=== PATIENT | female | born 1935 | race African-American/Black ===

== ENCOUNTER 2018-08-18 13:34 | Observation (INO) ==
[2018-08-18 14:42] LABS: Basophils # 0.1 10*3/uL (0.0-0.2); Basophils % 0.9 % (0.0-0.8); Eosinophils # 0.3 10*3/uL (0.0-0.87); Eosinophils % 2.2 % (0.00-10.9); Hematocrit 46.2 VOL% (35.7-47.0); Hemoglobin 14.4 GM/DL (12.0-16.0); Immature Granulocytes % 1.2 %; Immature Granulocytes Absolute 0.13 #; Lymphocytes # 1.1 10*3/uL (1.4-4.0); Lymphocytes % 9.7 % (21.3-54.2); Mean Corpuscular HGB Conc 31.2 GM/DL (32-36); Mean Corpuscular Hemoglobin 27 PG (27-34); Mean Corpuscular Volume 86.8 FL (87-102); Mean Platelet Volume 10.1 FL (9.6-12.0); Monocytes # 0.8 10*3/uL (0.11-0.8); Monocytes % 7.1 % (1.7-12.7); Neutrophils # 8.9 10*3/uL (1.4-7.4); Neutrophils % 78.9 % (38.7-73.9); Platelet Count 283 T/CUMM (130-400); Red Blood Count 5.32 MC/CUMM (3.8-5.5); Red Cell Distribution Width 15.1 % (9.3-17.3); White Blood Count 11.3 T/CUMM (4-12)
[2018-08-18 15:00] LABS: Albumin 3.1 G/DL (3.4-5.0); Bilirubin,Total 0.4 MG/DL (0.2-1.0); Calcium 8.8 MG/DL (8.5-10.1); Osmolality,Calculated 275.7 MOS/KG (273-304); Potassium 3.6 MMOL/L (3.5-5.1); Total Protein 8.5 G/DL (6.4-8.3)
[2018-08-18] MEDS ORDERED: FUROSEMIDE 40 MG/4 ML VIAL IV STA (15:14)
[2018-08-18 15:20] LABS: Barbiturates Screen,Urine Negative (Negative); Benzodiazepines Screen,Urine Negative (Negative); Cannabinoid Screen,Urine Negative (Negative); Opiate Screen,Urine Negative (Negative); Phencyclidine Screen,Urine Negative (Negative)
[2018-08-18 15:23] LABS: Apearance,Urine CLEAR (Clear); Bilirubin,Urine Negative (Negative); Blood, Urine Negative (Negative); Glucose,Urine (UA) Negative (Negative); Hyaline Casts,Urine 1 /LPF (0-3); Ketones,Urine Negative (Negative); Mucus,Urine Occasional /LPF (Occasional); Nitrite,Urine Negative (Negative); Protein,Urine Negative; RBC,Urine 2 /HPF (0-4); Squamous Epithelial Cell,Urine Occasional /HPF (0-10); Urine Color Yellow (Yellow); Urine Specific Gravity 1.011 (1.001-1.035); Urine Urobilinogen < 2.0 EU/DL (0.2-1.0); WBC,Urine 1 /HPF (0-6)
[2018-08-18] MEDS ORDERED: ONDANSETRON 4 MG/2 ML VIAL IV PRN (15:30)
[2018-08-18] MEDS ORDERED: ACETAMINOPHEN 325 MG TABLET PO PRN (15:30)
[2018-08-18] MEDS: ENOXAPARIN 40 MG/0.4 ML SYRINGE SUBCUT SCH (20:31)
[2018-08-19] MEDS ORDERED: FUROSEMIDE 20 MG/2 ML VIAL IV SCH (08:00)
[2018-08-19] MEDS: PANTOPRAZOLE 40 MG TABLET PO SCH (09:26)
[2018-08-19] MEDS ORDERED: ALBUTEROL 2.5 MG/3 ML NEB RESP TX PRN (13:30)
[2018-08-19] MEDS ORDERED: FUROSEMIDE 40 MG TABLET PO SCH (20:00)
[2018-08-19] MEDS ORDERED: PRAVASTATIN 20 MG TABLET PO SCH (21:00)
[2018-08-19] MEDS: MEMANTINE 10 MG TABLET PO SCH (21:16)
[2018-08-19] MEDS: SIMVASTATIN 10 MG TABLET PO SCH (21:16)
[2018-08-19] MEDS: CALCIUM (CARBONATE)/VITAMIN D 600 MG-400 UNIT TABLET PO SCH (21:16)
[2018-08-19] MEDS: ENOXAPARIN 40 MG/0.4 ML SYRINGE SUBCUT SCH (21:17)
[2018-08-20 05:15] LABS: Calcium 8.3 MG/DL (8.5-10.1); Osmolality,Calculated 287.8 MOS/KG (273-304); Potassium 3.7 MMOL/L (3.5-5.1)
[2018-08-20] MEDS: FUROSEMIDE 40 MG TABLET PO SCH (08:18)
[2018-08-20] MEDS: MULTIVITAMIN (CENTRUM) TABLET PO SCH (08:18)
[2018-08-20] MEDS: PANTOPRAZOLE 40 MG TABLET PO SCH (08:18)
[2018-08-20] MEDS: MEMANTINE 10 MG TABLET PO SCH ×2 (08:18→21:24)
[2018-08-20] MEDS: CHOLECALCIFEROL 5,000 UNIT TABLET PO SCH (08:18)
[2018-08-20] MEDS: CALCIUM (CARBONATE)/VITAMIN D 600 MG-400 UNIT TABLET PO SCH ×2 (08:18→21:24)
[2018-08-20] MEDS: CITALOPRAM 40 MG TABLET PO SCH (08:18)
[2018-08-20] MEDS ORDERED: RIVASTIGMINE 13.3 MG/24 HR PATCH TRANSDERM SCH (09:00)
[2018-08-20] MEDS: RIVASTIGMINE 4.6 MG/24 HR PATCH TRANSDERM SCH (09:53)
[2018-08-20] MEDS ORDERED: FUROSEMIDE 20 MG TABLET PO SCH (12:00)
[2018-08-20] MEDS: SIMVASTATIN 10 MG TABLET PO SCH (21:24)
[2018-08-20] MEDS: ENOXAPARIN 40 MG/0.4 ML SYRINGE SUBCUT SCH (21:24)
[2018-08-20] MEDS: OXcarbazepine 300 MG TABLET PO SCH (21:25)
[2018-08-21] MEDS: FUROSEMIDE 40 MG TABLET PO SCH (08:49)
[2018-08-21] MEDS: OXcarbazepine 300 MG TABLET PO SCH (08:49)
[2018-08-21] MEDS: PANTOPRAZOLE 40 MG TABLET PO SCH (08:49)
[2018-08-21] MEDS: CITALOPRAM 40 MG TABLET PO SCH (08:49)
[2018-08-21] MEDS: CALCIUM (CARBONATE)/VITAMIN D 600 MG-400 UNIT TABLET PO SCH (08:49)
[2018-08-21] MEDS: CHOLECALCIFEROL 5,000 UNIT TABLET PO SCH (08:49)
[2018-08-21] MEDS: RIVASTIGMINE 4.6 MG/24 HR PATCH TRANSDERM SCH (08:49)
[2018-08-21] MEDS: MEMANTINE 10 MG TABLET PO SCH (08:50)
[2018-08-21] MEDS: MULTIVITAMIN (CENTRUM) TABLET PO SCH (10:00)
[2018-08-21 11:53] VITALS: BP 121/59
== END 2018-08-21 11:50 ==
LOC: EDUNIT# → EDBD → N.ED 13:34 → N.EDINP 13:34 → SUATTDRO 15:30 → N.2W 16:06 → N.2E 17:46
PROVIDERS: ADMIT Internal Medicine; ATTEND Internal Medicine

== ENCOUNTER 2020-02-10 19:30 | Inpatient (IN) ==
[2020-02-10 20:50] LABS: Alanine Aminotransferase 43 U/L (13-56); Albumin 2.1 G/DL (3.4-5.0); Alkaline Phosphatase 91 U/L (45-117); Aspartate Amino Transferase 89 U/L (0-37); Bilirubin,Total < 0.39 MG/DL (0.2-1.0); Blood Urea Nitrogen 29 MG/DL (7-18); Calcium 10.1 MG/DL (8.5-10.1); Estimated Glom Filtration Rate 78 ML/MIN; Ferritin 1227.6 ng/ml (8-252); Glucose 132 MG/DL (74-106); Osmolality,Calculated 308.7 MOS/KG (273-304); Total Protein 8.2 G/DL (6.4-8.3)
[2020-02-10 20:51] LABS: INR 1.2; Partial Thromboplastin Time 26.4 SECS (23.9-33.8)
[2020-02-10] MEDS ORDERED: AZITHROMYCIN INJ 500 MG in SODIUM CHLORIDE 0.9% 250 ML IV STA (20:56)
[2020-02-10] MEDS ORDERED: ALBUTEROL/IPRATROPIUM 3 ML NEB RESP TX STA (20:56)
[2020-02-10] MEDS ORDERED: ONDANSETRON 4 MG/2 ML VIAL IV STA (20:56)
[2020-02-10] MEDS ORDERED: methylPREDNISolone SOD SUC 125 MG/2 ML VIAL IV STA (20:56)
[2020-02-10] MEDS ORDERED: PIPERACILLIN/TAZOBACTAM 3,375 MG in SODIUM CHLORIDE 0.9% 100 ML IV STA (20:56)
[2020-02-10 20:58] LABS: Basophils # 0.1 10*3/uL (0.0-0.2); Eosinophils # 0.2 10*3/uL (0.0-0.87); Hematocrit 54.9 VOL% (35.7-47.0); Hemoglobin 16.8 GM/DL (12.0-16.0); Immature Granulocytes % 4.1 %; Immature Granulocytes Absolute 0.39 #; Lymphocytes % 10.7 % (21.3-54.2); Mean Corpuscular HGB Conc 30.6 GM/DL (32-36); Mean Corpuscular Volume 89.7 FL (87-102); Mean Platelet Volume 11.7 FL (9.6-12.0); Monocytes % 6.2 % (1.7-12.7); NRBC # 0.04 10*3/uL; Platelet Count 303 T/CUMM (130-400); Red Blood Count 6.12 MC/CUMM (3.8-5.5); Red Cell Distribution Width 17.2 % (9.3-17.3); White Blood Count 9.4 T/CUMM (4-12)
[2020-02-10] MEDS ORDERED: POTASSIUM CHLORIDE 20 MEQ TABLET PO STA (20:58)
[2020-02-10 21:30] LABS: ABG Base Excess 0.3 MMOL/L (-2.5-2.5); ABG HCO3 24.6 MMOL/L (20-26); ABG Oxygen Saturation 96.6 % (95-100); ABG PCO2 39.4 MM HG (35-48); ABG PH 7.407 (7.35-7.45); ABG PO2 91.8 MM HG (80-95); ABG TCO2 21.2 MMOL/L (23-27); Allen Test Positive
[2020-02-10] MEDS ORDERED: FUROSEMIDE 40 MG/4 ML VIAL IV ONE (21:47)
[2020-02-10] MEDS ORDERED: POTASSIUM CHLORIDE RIDER 10 MEQ in PREMIX 1 EACH IV SCH (22:00)
[2020-02-10] MEDS ORDERED: FUROSEMIDE 100 MG/10 ML VIAL ONE (22:31)
[2020-02-10 22:53] LABS: Apearance,Urine CLEAR (Clear); Bilirubin,Urine Negative (Negative); Blood, Urine Negative (Negative); Glucose,Urine (UA) Negative (Negative); Hyaline Casts,Urine 38 /LPF (0-3); Ketones,Urine Negative (Negative); Mucus,Urine Few /LPF (Occasional); Nitrite,Urine Negative (Negative); Protein,Urine 30 MG/DL; RBC,Urine 1 /HPF (0-4); Squamous Epithelial Cell,Urine Occasional /HPF (0-10); Urine Color Yellow (Yellow); Urine Specific Gravity 1.018 (1.001-1.035); Urine Urobilinogen < 2.0 EU/DL (0.2-1.0); WBC,Urine 3 /HPF (0-6)
[2020-02-10] MEDS ORDERED: SODIUM CHLORIDE 0.9% IV ONE (23:30)
[2020-02-10] MEDS ORDERED: POTASSIUM CHLORIDE IV ONE (23:30)
[2020-02-10] MEDS ORDERED: SODIUM CHLORIDE 0.9% 1,000 ML IV SCH (23:38)
[2020-02-10] MEDS ORDERED: PROMETHAZINE 25 MG/1 ML VIAL IM PRN (23:38)
[2020-02-10] MEDS ORDERED: ONDANSETRON 4 MG/2 ML VIAL IV PRN (23:38)
[2020-02-11] MEDS: ENOXAPARIN 60 MG/0.6 ML SYRINGE SUBCUT SCH ×3 (01:00→20:20)
[2020-02-11 04:55] LABS: ABG Base Excess 0.7 MMOL/L (-2.5-2.5); ABG Oxygen Saturation 91.9 % (95-100); ABG PCO2 41.1 MM HG (35-48); ABG PH 7.402 (7.35-7.45); ABG PO2 66.5 MM HG (80-95); ABG TCO2 22.8 MMOL/L (23-27); Allen Test Positive; Pt O2 Delivery Device Other
[2020-02-11 06:03] LABS: Calcium 9.9 MG/DL (8.5-10.1); Osmolality,Calculated 316.4 MOS/KG (273-304)
[2020-02-11 06:06] LABS: Basophils # 0.1 10*3/uL (0.0-0.2); Basophils % 0.8 % (0.0-0.8); Hematocrit 45.9 VOL% (35.7-47.0); Immature Granulocytes % 4.2 %; Immature Granulocytes Absolute 0.38 #; Lymphocytes # 0.8 10*3/uL (1.4-4.0); Lymphocytes % 8.3 % (21.3-54.2); Mean Corpuscular HGB Conc 30.5 GM/DL (32-36); Mean Corpuscular Volume 89.8 FL (87-102); Mean Platelet Volume 11.8 FL (9.6-12.0); Monocytes % 3.6 % (1.7-12.7); NRBC # 0.05 10*3/uL; Neutrophils % 83.1 % (38.7-73.9); Platelet Count 299 T/CUMM (130-400); Red Blood Count 5.11 MC/CUMM (3.8-5.5); White Blood Count 9.1 T/CUMM (4-12)
[2020-02-11 06:17] LABS: INR 1.3; PT Patient Result 13.9 SECS (9.8-11.9)
[2020-02-11 06:35] LABS: Anisocytosis Slight; Band Neutrophils 3 % (0-10); Lymphocytes 8 % (20-55); Nucleated Red Blood Cells 2 (0-5); Platelet Estimate Normal; Segmented Neutrophils 86 % (50-85); Total Cells Counted 100
[2020-02-11 06:36] LABS: Smudge Cells Few
[2020-02-11] MEDS ORDERED: MAGNESIUM SULF RIDER 2 GM in PREMIX 1 EACH IV ONE (08:02)
[2020-02-11] MEDS ORDERED: POTASSIUM CHLORIDE 20 MEQ TABLET PO ONE (08:02)
[2020-02-11] MEDS ORDERED: ZINC SULFATE 220 MG CAPSULE PO SCH (09:00)
[2020-02-11] MEDS ORDERED: PANTOPRAZOLE 40 MG VIAL IV SCH (09:00)
[2020-02-11] MEDS ORDERED: HYDROXYCHLOROQUINE 200 MG TABLET PO SCH (09:00)
[2020-02-11] MEDS ORDERED: ALBUTEROL INHALER 18 GM INH PRN (13:21)
[2020-02-11] MEDS ORDERED: SODIUM CHLORIDE 0.9% 1,000 ML IV ONE (13:43)
[2020-02-11] MEDS: SODIUM CHLORIDE 0.45% 1,000 ML IV SCH (18:03)
[2020-02-11] MEDS ORDERED: VANCOMYCIN INJ 1,000 MG in SODIUM CHLORIDE 0.9% 250 ML IV ONE (20:00)
[2020-02-11] MEDS: MEMANTINE 10 MG TABLET PO SCH (20:20)
[2020-02-11] MEDS: SERTRALINE 100 MG TABLET PO SCH (20:20)
[2020-02-11] MEDS: SIMVASTATIN 10 MG TABLET PO SCH (20:20)
[2020-02-11] MEDS: ACETAMINOPHEN 500 MG TABLET PO SCH (20:20)
[2020-02-11] MEDS: OXcarbazepine 300 MG TABLET PO SCH (20:20)
[2020-02-11] MEDS: CALCIUM (CARBONATE)/VITAMIN D 600 MG-400 UNIT TABLET PO SCH (20:40)
[2020-02-12] MEDS: SODIUM CHLORIDE 0.45% 1,000 ML IV SCH ×2 (07:23→10:32)
[2020-02-12] MEDS ORDERED: HYDROXYCHLOROQUINE 200 MG TABLET PO SCH (09:00)
[2020-02-12] MEDS ORDERED: RIVASTIGMINE 4.6 MG/24 HR PATCH TRANSDERM SCH (09:00)
[2020-02-12] MEDS: ENOXAPARIN 60 MG/0.6 ML SYRINGE SUBCUT SCH ×3 (09:55→21:20)
[2020-02-12] MEDS: CALCIUM (CARBONATE)/VITAMIN D 600 MG-400 UNIT TABLET PO SCH ×2 (10:13→22:46)
[2020-02-12] MEDS: OXcarbazepine 300 MG TABLET PO SCH ×2 (10:15→22:47)
[2020-02-12] MEDS: MEMANTINE 10 MG TABLET PO SCH ×2 (10:15→22:46)
[2020-02-12] MEDS: allopurinoL 100 MG TABLET PO SCH (10:16)
[2020-02-12] MEDS: ACETAMINOPHEN 500 MG TABLET PO SCH ×2 (10:16→22:47)
[2020-02-12] MEDS: CHOLECALCIFEROL 5,000 UNIT TABLET PO SCH (10:16)
[2020-02-12 15:16] LABS: Calcium 9.7 MG/DL (8.5-10.1); Osmolality,Calculated 317.9 MOS/KG (273-304)
[2020-02-12] MEDS: POTASSIUM CHLORIDE RIDER 10 MEQ in PREMIX 1 EACH IV SCH ×5 (17:55→23:05)
[2020-02-12] MEDS: SERTRALINE 100 MG TABLET PO SCH (22:47)
[2020-02-12] MEDS: SIMVASTATIN 10 MG TABLET PO SCH (22:47)
[2020-02-13] MEDS: POTASSIUM CHLORIDE RIDER 10 MEQ in PREMIX 1 EACH IV SCH (01:05)
[2020-02-13 06:51] LABS: Basophils # 0.1 10*3/uL (0.0-0.2); Basophils % 0.8 % (0.0-0.8); Eosinophils # 0.2 10*3/uL (0.0-0.87); Eosinophils % 2.8 % (0.00-10.9); Hematocrit 30.6 VOL% (35.7-47.0); Immature Granulocytes % 6.6 %; Lymphocytes # 0.7 10*3/uL (1.4-4.0); Lymphocytes % 8.6 % (21.3-54.2); Mean Corpuscular HGB Conc 29.4 GM/DL (32-36); Mean Corpuscular Volume 92.4 FL (87-102); Mean Platelet Volume 12.5 FL (9.6-12.0); Monocytes % 5.5 % (1.7-12.7); NRBC # 0.06 10*3/uL; Neutrophils % 75.7 % (38.7-73.9); Red Cell Distribution Width 16.5 % (9.3-17.3); White Blood Count 7.6 T/CUMM (4-12)
[2020-02-13 06:53] LABS: Red Blood Count 3.31 MC/CUMM (3.8-5.5)
[2020-02-13 06:54] LABS: Platelet Count 109 T/CUMM (130-400)
[2020-02-13 07:29] LABS: Calcium 9.5 MG/DL (8.5-10.1); Ferritin 945.8 ng/ml (8-252); Osmolality,Calculated 309.3 MOS/KG (273-304)
[2020-02-13] MEDS: SODIUM CHLORIDE 0.45% 1,000 ML IV SCH ×3 (08:17→18:45)
[2020-02-13 08:29] LABS: Band Neutrophils 2 % (0-10); Eosinophils 4 % (0-10); Lymphocytes 10 % (20-55); Myelocytes 1 %; Nucleated Red Blood Cells 3 (0-5); Segmented Neutrophils 77 % (50-85); Total Cells Counted 100
[2020-02-13] MEDS: OXcarbazepine 300 MG TABLET PO SCH ×2 (08:40→23:27)
[2020-02-13] MEDS: ENOXAPARIN 60 MG/0.6 ML SYRINGE SUBCUT SCH (08:40)
[2020-02-13] MEDS: allopurinoL 100 MG TABLET PO SCH (08:40)
[2020-02-13] MEDS: CALCIUM (CARBONATE)/VITAMIN D 600 MG-400 UNIT TABLET PO SCH ×2 (08:40→23:27)
[2020-02-13] MEDS: ACETAMINOPHEN 500 MG TABLET PO SCH ×2 (08:40→23:28)
[2020-02-13] MEDS: MEMANTINE 10 MG TABLET PO SCH ×2 (08:40→23:27)
[2020-02-13] MEDS: CHOLECALCIFEROL 5,000 UNIT TABLET PO SCH (08:40)
[2020-02-13] MEDS: VANCOMYCIN INJ 1,750 MG in SODIUM CHLORIDE 0.9% 500 ML IV SCH (14:02)
[2020-02-13 16:11] LABS: Calcium 9.4 MG/DL (8.5-10.1); Osmolality,Calculated 306.4 MOS/KG (273-304)
[2020-02-13] MEDS: SERTRALINE 100 MG TABLET PO SCH (23:28)
[2020-02-13] MEDS: SIMVASTATIN 10 MG TABLET PO SCH (23:28)
[2020-02-14] MEDS: SODIUM CHLORIDE 0.45% 1,000 ML IV SCH (05:04)
[2020-02-14 05:43] LABS: Basophils # 0.1 10*3/uL (0.0-0.2); Basophils % 0.9 % (0.0-0.8); Eosinophils # 0.4 10*3/uL (0.0-0.87); Eosinophils % 2.9 % (0.00-10.9); Hematocrit 36.9 VOL% (35.7-47.0); Immature Granulocytes % 6.2 %; Immature Granulocytes Absolute 0.76 #; Lymphocytes # 0.8 10*3/uL (1.4-4.0); Lymphocytes % 6.7 % (21.3-54.2); Mean Corpuscular HGB Conc 30.1 GM/DL (32-36); Mean Platelet Volume 11.3 FL (9.6-12.0); Monocytes % 5.4 % (1.7-12.7); NRBC # 0.05 10*3/uL; Neutrophils % 77.9 % (38.7-73.9); Red Cell Distribution Width 16.5 % (9.3-17.3)
[2020-02-14 05:44] LABS: Hemoglobin 11.1 GM/DL (12.0-16.0); Platelet Count 383 T/CUMM (130-400); Red Blood Count 4.01 MC/CUMM (3.8-5.5); White Blood Count 12.3 T/CUMM (4-12)
[2020-02-14 06:00] LABS: Calcium 9.1 MG/DL (8.5-10.1); Ferritin 856.5 ng/ml (8-252); Osmolality,Calculated 305.4 MOS/KG (273-304)
[2020-02-14 06:07] LABS: Eosinophils 2 % (0-10); Lymphocytes 6 % (20-55); Microcytosis Slight; Platelet Estimate Adequate; Segmented Neutrophils 86 % (50-85); Total Cells Counted 100
[2020-02-14] MEDS: VANCOMYCIN INJ 1,750 MG in SODIUM CHLORIDE 0.9% 500 ML IV SCH (06:45)
[2020-02-14] MEDS ORDERED: POTASSIUM CHLORIDE 20 MEQ TABLET PO PRN (07:09)
[2020-02-14] MEDS: OXcarbazepine 300 MG TABLET PO SCH ×2 (09:04→21:16)
[2020-02-14] MEDS: ACETAMINOPHEN 500 MG TABLET PO SCH ×2 (09:04→21:16)
[2020-02-14] MEDS: MEMANTINE 10 MG TABLET PO SCH ×2 (09:04→21:16)
[2020-02-14] MEDS: CALCIUM (CARBONATE)/VITAMIN D 600 MG-400 UNIT TABLET PO SCH ×2 (09:04→21:16)
[2020-02-14] MEDS: allopurinoL 100 MG TABLET PO SCH (09:05)
[2020-02-14] MEDS: CHOLECALCIFEROL 5,000 UNIT TABLET PO SCH (09:05)
[2020-02-14] MEDS: ENOXAPARIN 60 MG/0.6 ML SYRINGE SUBCUT SCH ×2 (09:50→21:16)
[2020-02-14] MEDS ORDERED: LORazepam 2 MG/1 ML VIAL IV ONE (10:32)
[2020-02-14] MEDS ORDERED: LORazepam 2 MG/1 ML VIAL IM ONE (10:38)
[2020-02-14] MEDS: DEXTROSE 5% 1,000 ML IV SCH (16:08)
[2020-02-14] MEDS: SERTRALINE 100 MG TABLET PO SCH (21:16)
[2020-02-14] MEDS: SIMVASTATIN 10 MG TABLET PO SCH (21:16)
[2020-02-15] MEDS: DEXTROSE 5% 1,000 ML IV SCH ×2 (03:36→23:00)
[2020-02-15 05:35] LABS: Basophils # 0.1 10*3/uL (0.0-0.2); Basophils % 0.8 % (0.0-0.8); Eosinophils # 0.4 10*3/uL (0.0-0.87); Eosinophils % 2.7 % (0.00-10.9); Hematocrit 36.5 VOL% (35.7-47.0); Hemoglobin 11.1 GM/DL (12.0-16.0); Immature Granulocytes % 6.4 %; Immature Granulocytes Absolute 0.83 #; Lymphocytes # 0.8 10*3/uL (1.4-4.0); Lymphocytes % 5.9 % (21.3-54.2); Mean Corpuscular HGB Conc 30.4 GM/DL (32-36); Mean Corpuscular Volume 90.3 FL (87-102); Mean Platelet Volume 10.8 FL (9.6-12.0); Monocytes % 5.6 % (1.7-12.7); NRBC # 0.05 10*3/uL; Neutrophils % 78.6 % (38.7-73.9); Platelet Count 297 T/CUMM (130-400); Red Blood Count 4.04 MC/CUMM (3.8-5.5); Red Cell Distribution Width 16.3 % (9.3-17.3); White Blood Count 13.1 T/CUMM (4-12)
[2020-02-15 05:57] LABS: Eosinophils 2 % (0-10); Hypochromasia Slight; Lymphocytes 3 % (20-55); Microcytosis Slight; Nucleated Red Blood Cells 1 (0-5); Platelet Estimate Adequate; Segmented Neutrophils 89 % (50-85); Total Cells Counted 100
[2020-02-15 06:17] LABS: Ferritin 1530.1 ng/ml (8-252); Osmolality,Calculated 306.6 MOS/KG (273-304)
[2020-02-15] MEDS ORDERED: POTASSIUM CHLORIDE INJ 50 MEQ in SODIUM CHLORIDE 0.9% 500 ML IV ONE (09:00)
[2020-02-15] MEDS: CALCIUM (CARBONATE)/VITAMIN D 600 MG-400 UNIT TABLET PO SCH ×2 (09:20→21:04)
[2020-02-15] MEDS: ACETAMINOPHEN 500 MG TABLET PO SCH ×2 (09:20→21:04)
[2020-02-15] MEDS: CHOLECALCIFEROL 5,000 UNIT TABLET PO SCH (09:20)
[2020-02-15] MEDS: OXcarbazepine 300 MG TABLET PO SCH ×2 (09:20→21:04)
[2020-02-15] MEDS: MEMANTINE 10 MG TABLET PO SCH ×2 (09:20→21:04)
[2020-02-15] MEDS: allopurinoL 100 MG TABLET PO SCH (09:20)
[2020-02-15] MEDS: ENOXAPARIN 60 MG/0.6 ML SYRINGE SUBCUT SCH ×2 (09:48→21:04)
[2020-02-15] MEDS: SIMVASTATIN 10 MG TABLET PO SCH (21:04)
[2020-02-15] MEDS: SERTRALINE 100 MG TABLET PO SCH (21:04)
[2020-02-16 08:11] LABS: Basophils # 0.1 10*3/uL (0.0-0.2); Eosinophils # 0.5 10*3/uL (0.0-0.87); Eosinophils % 3.5 % (0.00-10.9); Hematocrit 38.3 VOL% (35.7-47.0); Immature Granulocytes % 6.3 %; Immature Granulocytes Absolute 0.84 #; Lymphocytes % 7.4 % (21.3-54.2); Mean Corpuscular HGB Conc 31.3 GM/DL (32-36); Mean Corpuscular Volume 88.9 FL (87-102); Mean Platelet Volume 11.2 FL (9.6-12.0); Monocytes % 6.8 % (1.7-12.7); NRBC # 0.03 10*3/uL; Platelet Count 277 T/CUMM (130-400); Red Blood Count 4.31 MC/CUMM (3.8-5.5); Red Cell Distribution Width 16.8 % (9.3-17.3); White Blood Count 13.4 T/CUMM (4-12)
[2020-02-16 08:34] LABS: Calcium 8.8 MG/DL (8.5-10.1); Ferritin 1152.3 ng/ml (8-252)
[2020-02-16 08:37] LABS: Anisocytosis 1+; Band Neutrophils 3 % (0-10); Eosinophils 3 % (0-10); Lymphocytes 5 % (20-55); Myelocytes 2 %; Platelet Estimate Normal; Segmented Neutrophils 83 % (50-85); Total Cells Counted 100
[2020-02-16 08:38] LABS: Macrocytosis Slight; Polychromasia Slight
[2020-02-16] MEDS: DEXTROSE 5% 1,000 ML IV SCH ×2 (09:09→20:10)
[2020-02-16] MEDS: ACETAMINOPHEN 500 MG TABLET PO SCH ×2 (09:09→20:39)
[2020-02-16] MEDS: ENOXAPARIN 60 MG/0.6 ML SYRINGE SUBCUT SCH ×2 (09:09→20:09)
[2020-02-16] MEDS: POTASSIUM CHLORIDE RIDER 10 MEQ in PREMIX 1 EACH IV PRN ×4 (11:10→15:26)
[2020-02-16] MEDS: LORazepam 2 MG/1 ML VIAL IV PRN (21:35)
[2020-02-16] MEDS: ACETAMINOPHEN 650 MG SUPP RECTAL PRN (21:35)
[2020-02-17 06:04] LABS: Basophils # 0.1 10*3/uL (0.0-0.2); Eosinophils # 0.5 10*3/uL (0.0-0.87); Eosinophils % 4.4 % (0.00-10.9); Hemoglobin 10.4 GM/DL (12.0-16.0); Immature Granulocytes % 6.9 %; Immature Granulocytes Absolute 0.84 #; Lymphocytes # 1.1 10*3/uL (1.4-4.0); Lymphocytes % 8.6 % (21.3-54.2); Mean Corpuscular HGB Conc 30.6 GM/DL (32-36); Mean Corpuscular Volume 88.3 FL (87-102); Mean Platelet Volume 11.6 FL (9.6-12.0); Monocytes % 6.3 % (1.7-12.7); Neutrophils % 72.8 % (38.7-73.9); Platelet Count 287 T/CUMM (130-400); Red Blood Count 3.85 MC/CUMM (3.8-5.5); Red Cell Distribution Width 16.6 % (9.3-17.3); White Blood Count 12.2 T/CUMM (4-12)
[2020-02-17 06:41] LABS: Calcium 8.5 MG/DL (8.5-10.1); Ferritin 990.8 ng/ml (8-252); Osmolality,Calculated 291.3 MOS/KG (273-304)
[2020-02-17 06:49] LABS: Band Neutrophils 1 % (0-10); Eosinophils 5 % (0-10); Lymphocytes 12 % (20-55); Metamyelocytes 1 %; Myelocytes 1 %; Segmented Neutrophils 77 % (50-85); Total Cells Counted 100
[2020-02-17 06:50] LABS: Anisocytosis 1+; Platelet Estimate Normal
[2020-02-17] MEDS ORDERED: MAGNESIUM SULF RIDER 2 GM in PREMIX 1 EACH IV PRN (07:12)
[2020-02-17] MEDS ORDERED: MAGNESIUM SULF RIDER 4 GM in PREMIX 1 EACH IV PRN (07:12)
[2020-02-17] MEDS ORDERED: POTASSIUM CHLORIDE INJ 50 MEQ, MAGNESIUM SULF INJ 2 GM in SODIUM CHLORIDE 0.9% 500 ML IV ONE (09:00)
[2020-02-17] MEDS ORDERED: MORPHINE 4 MG/1 ML VIAL IV ONE (09:00)
[2020-02-17] MEDS: ENOXAPARIN 60 MG/0.6 ML SYRINGE SUBCUT SCH ×2 (09:53→20:44)
[2020-02-17] MEDS: DEXTROSE 5% 1,000 ML IV SCH ×2 (09:57→18:54)
[2020-02-17] MEDS: ACETAMINOPHEN 500 MG TABLET PO SCH ×2 (10:20→21:43)
[2020-02-18] MEDS: ACETAMINOPHEN 650 MG SUPP RECTAL PRN (04:30)
[2020-02-18] MEDS: DEXTROSE 5% 1,000 ML IV SCH (04:47)
[2020-02-18 06:15] LABS: Hematocrit 34.9 VOL% (35.7-47.0); Hemoglobin 10.3 GM/DL (12.0-16.0); Red Blood Count 3.81 MC/CUMM (3.8-5.5); White Blood Count 13.1 T/CUMM (4-12)
[2020-02-18 06:16] LABS: Basophils # 0.1 10*3/uL (0.0-0.2); Basophils % 0.9 % (0.0-0.8); Eosinophils # 0.5 10*3/uL (0.0-0.87); Eosinophils % 3.8 % (0.00-10.9); Immature Granulocytes % 5.3 %; Immature Granulocytes Absolute 0.69 #; Lymphocytes # 1.1 10*3/uL (1.4-4.0); Lymphocytes % 8.4 % (21.3-54.2); Mean Corpuscular HGB Conc 29.5 GM/DL (32-36); Mean Corpuscular Volume 91.6 FL (87-102); Mean Platelet Volume 11.4 FL (9.6-12.0); Monocytes % 7.8 % (1.7-12.7); NRBC # 0.07 10*3/uL; Neutrophils % 73.8 % (38.7-73.9); Platelet Count 300 T/CUMM (130-400); Red Cell Distribution Width 16.6 % (9.3-17.3)
[2020-02-18 06:39] LABS: Calcium 8.5 MG/DL (8.5-10.1); Ferritin 842.3 ng/ml (8-252); Osmolality,Calculated 298.7 MOS/KG (273-304)
[2020-02-18] MEDS: ENOXAPARIN 60 MG/0.6 ML SYRINGE SUBCUT SCH ×2 (09:40→23:37)
[2020-02-18] MEDS: ACETAMINOPHEN 500 MG TABLET PO SCH ×2 (09:42→23:20)
[2020-02-18] MEDS ORDERED: MORPHINE 4 MG/1 ML VIAL IV PRN (11:06)
[2020-02-18 11:13] LABS: Lymphocytes 13 % (20-55); Macrocytosis 1+; Nucleated Red Blood Cells 1 (0-5); Platelet Estimate Normal; Polychromasia Few; Segmented Neutrophils 81 % (50-85); Spherocytes 1+; Total Cells Counted 100
[2020-02-18] MEDS: LORazepam 2 MG/1 ML VIAL IV PRN (23:38)
[2020-02-19] MEDS: DEXTROSE 5% 1,000 ML IV SCH ×2 (01:02→22:52)
[2020-02-19 06:11] LABS: Basophils # 0.1 10*3/uL (0.0-0.2); Eosinophils # 0.4 10*3/uL (0.0-0.87); Eosinophils % 2.5 % (0.00-10.9); Hematocrit 35.5 VOL% (35.7-47.0); Hemoglobin 10.5 GM/DL (12.0-16.0); Immature Granulocytes % 4.1 %; Immature Granulocytes Absolute 0.57 #; Lymphocytes # 1.2 10*3/uL (1.4-4.0); Lymphocytes % 8.3 % (21.3-54.2); Mean Corpuscular HGB Conc 29.6 GM/DL (32-36); Mean Corpuscular Volume 91.5 FL (87-102); Mean Platelet Volume 11.1 FL (9.6-12.0); Monocytes % 8.6 % (1.7-12.7); NRBC # 0.06 10*3/uL; Neutrophils % 75.5 % (38.7-73.9); Platelet Count 295 T/CUMM (130-400); Red Blood Count 3.88 MC/CUMM (3.8-5.5); Red Cell Distribution Width 16.8 % (9.3-17.3); White Blood Count 13.8 T/CUMM (4-12)
[2020-02-19 06:24] LABS: Calcium 8.7 MG/DL (8.5-10.1); Osmolality,Calculated 295.9 MOS/KG (273-304)
[2020-02-19 06:33] LABS: Anisocytosis Slight; Band Neutrophils 6 % (0-10); Eosinophils 1 % (0-10); Lymphocytes 6 % (20-55); Macrocytosis Slight; Myelocytes 1 %; Platelet Estimate Normal; Segmented Neutrophils 81 % (50-85); Smudge Cells Few; Total Cells Counted 100
[2020-02-19] MEDS: ENOXAPARIN 60 MG/0.6 ML SYRINGE SUBCUT SCH (08:23)
[2020-02-19] MEDS: ACETAMINOPHEN 500 MG TABLET PO SCH ×2 (08:24→21:40)
[2020-02-19] MEDS ORDERED: LORazepam 2 MG/1 ML VIAL IV PRN ×2 (08:40→10:35)
[2020-02-19] MEDS: MORPHINE 4 MG/1 ML VIAL IV PRN ×2 (09:58→17:22)
[2020-02-20] MEDS: ACETAMINOPHEN 500 MG TABLET PO SCH ×2 (08:30→20:07)
[2020-02-20] MEDS: MORPHINE 4 MG/1 ML VIAL IV PRN ×2 (08:53→17:08)
[2020-02-21] MEDS: MORPHINE 4 MG/1 ML VIAL IV PRN ×3 (09:50→18:08)
[2020-02-22] MEDS: MORPHINE 4 MG/1 ML VIAL IV PRN ×3 (01:42→10:10)
[2020-02-22 12:14] VITALS: BP 111/63
== END 2020-02-22 15:23 | disposition hospice, inpatient (51) | DRG 177 ==
LOC: EDUNIT# → EDBD → N.ED 19:30 → N.EDINP 21:17 → SUATTDRO 21:17 → N.CC 23:25 → N.2W 02-11 12:11 → N.2E 02-16 14:04
PROVIDERS: ADMIT Internal Medicine; ATTEND Hospitalist

== ENCOUNTER 2020-02-22 15:33 | Inpatient (IN) ==
[2020-02-22] MEDS ORDERED: MORPHINE 4 MG/1 ML VIAL IV PRN (15:57)
[2020-02-22] MEDS ORDERED: LORazepam 2 MG/1 ML VIAL IV PRN (15:57)
[2020-02-23 09:22] VITALS: BP 91/64
== END 2020-02-23 12:15 | disposition expired | DRG 177 ==
LOC: N.2E 15:33 → SUATTDRO 15:33 → N.4E 16:44
PROVIDERS: ADMIT Hospitalist; ATTEND Internal Medicine